=== PATIENT | female | born 1955 ===

== ENCOUNTER 2023-10-18 03:55 | Day surgery (SDC) | payer OTHER ==
[2023-10-08 14:56] VITALS: BMI 35.9
[2023-10-18] MEDS ORDERED: ONDANSETRON 4 MG/2 ML VIAL IVPUSH PRN (11:02)
[2023-10-18] MEDS ORDERED: FENTANYL CITRATE/PF 50 MCG/ML VIAL ONE ×2 (11:03→11:47)
[2023-10-18] MEDS ORDERED: PROPOFOL 20 ML ONE (11:03)
[2023-10-18] MEDS ORDERED: MIDAZOLAM HCL 2 MG/2 ML SINGLE DOSE VIAL ONE (11:04)
[2023-10-18] MEDS ORDERED: LIDOCAINE HCL/PF 2% SDV 5ML VIAL ONE (11:07)
[2023-10-18] MEDS ORDERED: LACTATED RINGERS SOLUTION 1,000 ML IV SCH (11:15)
[2023-10-18] MEDS: ceFAZolin SODIUM 1 GM VIAL IVPB ONE (11:33)
[2023-10-18] MEDS ORDERED: DEXAMETHASONE SOD PHOSPHATE 4 MG/1 ML VIAL ONE (11:41)
[2023-10-18] MEDS ORDERED: ceFAZolin SODIUM 1 GM VIAL ONE (11:41)
[2023-10-18] MEDS ORDERED: KETOROLAC TROMETHAMINE 30 MG/1 ML VIAL ONE (11:41)
[2023-10-18] MEDS ORDERED: ONDANSETRON 4 MG/2 ML VIAL ONE (11:41)
[2023-10-18 13:41] VITALS: PULSE 72
[2023-10-18 13:53] VITALS: RESP 18
[2023-10-18 14:51] VITALS: TEMP 97.4
[2023-10-18 16:09] VITALS: BP 130/60
== END 2023-10-18 16:09 | disposition home or self-care (01) ==
LOC: JASU-SURG 03:55
PROVIDERS: ATTEND Obstetrics & Gynecology
PROC: 0UB98ZZ Excision of Uterus, Via Natural or Artificial Opening Endoscopic (ICD-10-PCS; principal; 2023-10-18 11:00)
DX: N84.0 Polyp of corpus uteri (principal); N95.0 Postmenopausal bleeding
CPT/HCPCS: 88305-TC; 94760